=== PATIENT | female | born 1975 | race Caucasian/White ===

== ENCOUNTER 2017-12-19 14:51 | Emergency (ER) | payer MEDICAID ==
[~2017-12-19] VITALS: Ht 167.6 cm; Wt 57.0 kg
[2017-12-19 14:58] VITALS: BP 128/64; PULSE 83; RESP 16; TEMP 98.3; O2SAT 100
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
[2017-12-19 16:55] VITALS: BP 124/60
== END 2017-12-19 16:56 | disposition home or self-care (01) ==
LOC: NEPE 14:51
DX: H53.9 Unspecified visual disturbance (principal)
CPT/HCPCS: 99282